=== PATIENT | female | born 1990 | race Caucasian/White ===

== ENCOUNTER 2017-11-05 15:10 | Emergency (ER) | payer OTHER ==
[~2017-11-05] VITALS: Ht 165.1 cm; Wt 70.2 kg
[~2017-11-05 15:10] MED LIST: ACYCLOVIR800 MG PO; AMOXICILLIN500 MG PO; AMOXICILLIN875 MG OR; BACTRIM DS1 TAB PO; BIRTH CONTROL; BUSPAR10 M1 PO; CIPROFLOXACN500 MG PO; DIFLUCAN150 MG PO; DOXYCYCL HYC100 MG PO; LAMICTAL100 M1 PO; LORTAB 7.5 PO; MIRENA IU; MOTRIN800 MG PO; MUCINEX600 MG OR; PAROXETINE10 MG PO; PHENERGAN12.5 MG/TA PO; ULTRAM50 MG PO; XANAX0.25 MG PO; ZOFRAN ODT4 MG PO
[2017-11-05] MEDS ORDERED: AUGMENTIN875TAB PO (16:30)
[2017-11-05 17:14] VITALS: BP 131/84
== END 2017-11-05 17:14 | disposition home or self-care (01) | DRG 159 ==
LOC: ED 15:10
PROC: 0CQ1XZZ Repair Lower Lip, External Approach (ICD-10-PCS; principal; 2017-11-05)
PROC: 0CQ0XZZ Repair Upper Lip, External Approach (ICD-10-PCS; 2017-11-05)
DX: S01.511A Laceration without foreign body of lip, initial encounter (principal); V80.010A Animal-rider injured by fall from or being thrown from horse in noncollision accident, initial encounter; Y93.52 Activity, horseback riding; Y92.410 Unspecified street and highway as the place of occurrence of the external cause

== ENCOUNTER 2018-06-24 09:54 | Emergency (ER) | payer OTHER ==
[~2018-06-24] VITALS: Ht 165.1 cm; Wt 70.5 kg
[~2018-06-24 09:54] MED LIST changes: +AUGMENTIN875TAB PO
[2018-06-24] MEDS ORDERED: WELLBUTRIN SR150 MG PO (10:12)
[2018-06-24] MEDS ORDERED: VYVANSE50 MG PO (10:13)
[2018-06-24] MEDS ORDERED: LAMICTAL150 M1 PO (10:13)
[2018-06-24] MEDS ORDERED: ALL DAY10 MG PO (10:15)
[2018-06-24 11:21] LABS: URINE BILIRUBIN - DIPSTICK NEGATIVE (NEGATIVE); URINE BLOOD DIPSTICK NEGATIVE (NEGATIVE); URINE CLARITY CLEAR; URINE COLOR YELLOW; URINE GLUCOSE - DIPSTICK NEGATIVE (NEGATIVE); URINE KETONE NEGATIVE (NEGATIVE); URINE LEUK ESTERASE NEGATIVE (NEGATIVE); URINE NITRITE - DIPSTICK NEGATIVE (Negative); URINE PROTEIN - DIPSTICK NEGATIVE (NEG-TRACE); URINE SPECIFIC GRAVITY 1.015; URINE UROBILINOGEN - DIPSTICK 0.2 E.U./dL (0.2)
[2018-06-24 11:30] LABS: HEMATOCRIT 41.6 % (37.0-47.0); HEMOGLOBIN 13.7 g/dl (12.0-16.0); IMMATURE GRANULOCYTES 0.3 % (0.0-5.0); MEAN CELL VOLUME 89.7 fL CALC (80.0-100.0); MEAN CORPUSCULAR HGB 29.5 pG CALC (26.0-32.0); MEAN CORPUSCULAR HGB CONC 32.9 g/L CALC (32.0-36.0); NEUT# 6.17 thou/uL (2.00-7.15); RED BLOOD COUNT 4.64 mill/uL (4.20-5.60); RED CELL DISTRI WIDTH 12.3 % (11.5-15.5)
[2018-06-24 11:45] LABS: ALBUMIN 4.6 g/dL (3.2-5.0); ALKALINE PHOSPHATASE 73 u/l (38-126); ANION GAP 14 (6-22 (CALC)); BILIRUBIN, TOTAL 1.2 mg/dL (0.0-1.4); BUN 7 mg/dL (7-17); BUN/CREATININE RATIO 12 (12-20 (CALC)); CARBON DIOXIDE 28 mmol/l (22-30); CHLORIDE 103 mmol/l (95-108); CREATININE 0.6 mg/dL (0.5-1.0); GFR > 60 ML/MIN (>=60 (CALC)); GFR FOR AFR.AMER. > 60 ML/MIN (>=60 (CALC)); POTASSIUM 3.8 mmol/l (3.5-5.1); SODIUM 141 mmol/l (137-146); TOTAL PROTEIN 7.8 g/dL (6.3-8.2)
[2018-06-24 11:46] LABS: SGOT/AST 21 u/l (14-36)
[2018-06-24] MEDS ORDERED: BENTYL10 MG PO (14:09)
[2018-06-24] MEDS ORDERED: TORADOL PO (14:09)
[2018-06-24 14:17] VITALS: BP 149/97
== END 2018-06-24 14:24 | disposition home or self-care (01) | DRG 392 ==
LOC: ED 09:54
PROVIDERS: Emergency Medicine
DX: R10.32 Left lower quadrant pain (principal); R10.31 Right lower quadrant pain; F32.9 Major depressive disorder, single episode, unspecified
CPT/HCPCS: Q9967

== ENCOUNTER 2018-07-06 18:26 | Emergency (ER) | payer OTHER ==
[~2018-07-06] VITALS: Ht 165.1 cm; Wt 70.0 kg
[~2018-07-06 18:26] MED LIST changes: +ALL DAY10 MG PO; +BENTYL10 MG PO; +LAMICTAL150 M1 PO; +TORADOL PO; +VYVANSE50 MG PO; +WELLBUTRIN SR150 MG PO
[2018-07-06] MEDS ORDERED: MOTRIN800 MG PO (20:21)
[2018-07-06] MEDS ORDERED: TRAMADOL HCL50 MG PO (20:21)
[2018-07-06 20:31] VITALS: BP 130/73
== END 2018-07-06 20:40 | disposition home or self-care (01) | DRG 552 ==
LOC: ED 18:26
DX: S16.1XXA Strain of muscle, fascia and tendon at neck level, initial encounter (principal); S09.90XA Unspecified injury of head, initial encounter; V53.5XXA Driver of pick-up truck or van injured in collision with car, pick-up truck or van in traffic accident, initial encounter; Y92.414 Local residential or business street as the place of occurrence of the external cause; W22.11XA Striking against or struck by driver side automobile airbag, initial encounter; Y93.89 Activity, other specified

== ENCOUNTER 2020-01-10 | Emergency (ER) | payer OTHER ==
[~2020-01-10] MED LIST changes: +TRAMADOL HCL50 MG PO
[2020-01-10] MEDS ORDERED: AMOXICILLIN500 MG PO (22:46)
== END 2020-01-10 23:03 | disposition home or self-care (01) | DRG 605 ==
PROC: 0HQGXZZ Repair Left Hand Skin, External Approach (ICD-10-PCS; principal; 2020-01-10)
DX: S61.211A Laceration without foreign body of left index finger without damage to nail, initial encounter (principal); F17.210 Nicotine dependence, cigarettes, uncomplicated; W26.0XXA Contact with knife, initial encounter

== ENCOUNTER 2020-01-16 09:22 | Emergency (ER) | payer OTHER ==
[2020-01-16 10:08] VITALS: BP 134/74
== END 2020-01-16 10:13 | disposition home or self-care (01) | DRG 950 ==
LOC: ED 09:22
DX: S61.412D Laceration without foreign body of left hand, subsequent encounter (principal); F17.210 Nicotine dependence, cigarettes, uncomplicated; W26.0XXD Contact with knife, subsequent encounter

== ENCOUNTER 2022-08-24 01:19 | Emergency (ER) | payer SELFPAY ==
[~2022-08-24] VITALS: Ht 165.1 cm; Wt 81.0 kg
[2022-08-24 01:30] VITALS: BP 119/77
[2022-08-24 01:45] VITALS: BP 118/76
[2022-08-24 02:00] VITALS: BP 124/83
[2022-08-24 02:15] VITALS: BP 128/81
[2022-08-24 02:30] VITALS: BP 121/87
[2022-08-24] MEDS ORDERED: FLOXIN OTIC0.3 % AU (02:31)
[2022-08-24] MEDS ORDERED: AMOXICILLIN/PO500 MG PO ×2 (02:31→09:51)
[2022-08-24] MEDS ORDERED: TAM75CAP PO (02:31)
[2022-08-24 02:36] VITALS: BP 121/87
== END 2022-08-24 02:47 | disposition home or self-care (01) | DRG 153 ==
LOC: ED 01:19
DX: J11.1 Influenza due to unidentified influenza virus with other respiratory manifestations (principal); H66.93 Otitis media, unspecified, bilateral; Z20.822 Contact with and (suspected) exposure to COVID-19; F17.210 Nicotine dependence, cigarettes, uncomplicated